=== PATIENT | male | born 2000 | race Caucasian/White ===

== ENCOUNTER 2019-11-12 14:50 | Emergency (ER) | payer OTHER ==
[2019-11-12 15:29] VITALS: BP 122/69
--- NOTE | 2019-11-12 16:10 | UC ---
Head Injury HPI - HPI Summary HPI Summary: Pt presents with c/o headache, light sensitivity, occasional nausea s/p hitting head against wall on night ~ 2300. Pt denies LOC, or worsening symptoms since onset. - History Of Current Complaint Chief Complaint: UCHeadache Stated Complaint: HEAD INJURY 2 DAYS Time Seen by Provider: 11/12/19 15:53 Hx Obtained From: Patient Onset/Duration: Sudden Onset, Lasting Days, Still Present Severity Currently: Mild Severity Initially: Mild Pain Intensity: 6 Character: Dull, Pressure Aggravating Factor(s): Other - light and cell phone use Alleviating Factor(s): Other - rest Associated Signs And Symptoms: Positive: Negative - Risk Factors SDH Risk Factor: Male - Allergies/Home Medications Allergies/Adverse Reactions: Allergies Allergy/AdvReac Type Severity Reaction Status Date / Time No Known Allergies Allergy Verified 11/12/19 15:29 Home Medications: Home Medications NK [No Home Medications Reported] 11/12/19 [History Confirmed 11/12/19] PMH/Surg Hx/FS Hx/Imm Hx Previously Healthy: Yes - Surgical History Surgical History: None - Family History Known Family History: Positive: Cardiac Disease - Social History Occupation: [employer] Alcohol Use: Occasionally Substance Use Type: None Smoking Status (MU): Never Smoked Tobacco Have You Smoked in the Last Year: No - Immunization History Vaccination Up to Date: Yes Review of Systems All Other Systems Reviewed And Are Negative: Yes Constitutional: Positive: Negative Skin: Positive: Negative Eyes: Positive: Negative ENT: Positive: Negative Respiratory: Positive: Negative Cardiovascular: Positive: Negative Gastrointestinal: Positive: Negative Genitourinary: Positive: Negative Motor: Positive: Negative Neurovascular: Positive: Negative Musculoskeletal: Positive: Negative Neurological: Positive: Headache - left episcopalian. Psychological: Positive: Negative Is Patient Immunocompromised?: No Physical Exam Triage Information Reviewed: Yes Appearance: Well-Appearing Vital Signs: Initial Vital Signs Temp 98.3 F 11/12/19 15:24 Pulse 61 11/12/19 15:24 Resp 17 11/12/19 15:24 BP 122/69 11/12/19 15:24 Pulse Ox 100 11/12/19 15:24 Vital Signs Reviewed: Yes Eye Exam: Normal, Other - PERRLA ENT Exam: Normal ENT: Positive: Normal ENT inspection, Hearing grossly normal, Pharynx normal, TMs normal, Uvula midline Dental Exam: Normal Neck exam: Normal Neck: Positive: Supple, Nontender, No Lymphadenopathy Respiratory Exam: Normal Cardiovascular Exam: Normal Musculoskeletal Exam: Normal, Other - no step off appreciated on head. frontal , parietal and temporal bones non tender no bruising, no swelling full ROM of neck and cervical spine. Musculoskeletal: Positive: Strength Intact, ROM Intact Neurological Exam: Normal Neurological: Positive: Alert, Muscle Tone Normal Psychological Exam: Normal Skin Exam: Normal Head Injury Course/Dx - Course Course Of Treatment: Pt was instructed to follow up with PCP or seek care at closest ER if symptoms do not implore or worsen. Pt states that he has not taken anything for pain management. Pt was appropriate in physical ability and behavior. Denies any discharge from nose or ears. Pt was instructed to "rest" b rain, no Cell phone usage, no computer usdage, limited reading, limited screen time. Pt verbalized understanding and agreed to plan of care. - Differential Dx/Diagnosis Differential Diagnosis/HQI/PQRI: Cerebral Contusion, Cervical Sprain, Concussion Without LOC, Contusion, Intracranial Bleed, Skull Fracture Provider Diagnosis: Concussion Discharge ED - Sign-Out/Discharge Documenting (check all that apply): Patient Departure All imaging exams completed and their final reports reviewed: No Studies - Discharge Plan Condition: Stable Disposition: HOME Patient Education Materials: Concussion (ED), Post Concussion Syndrome (ED), Safe Use of NSAIDs (ED) Referrals: [facility] [Outside] - If Needed No Primary Care Phys,NOPCP [Primary Care Provider] - Additional Instructions: Please follow up with your PCP as needed. If your symptoms do not improve or they worsen, then please seek care at the closest emergency room as soon as possible. - Billing Disposition and Condition Condition: STABLE Disposition: Home
== END 2019-11-12 16:18 | disposition home or self-care (01) ==
LOC: UCCORT 14:50
DX: S06.0X0A Concussion without loss of consciousness, initial encounter (principal); W22.01XA Walked into wall, initial encounter; Y92.9 Unspecified place or not applicable
CPT/HCPCS: 99201; G0463